=== PATIENT | male | born 1990 | race Asian ===

== ENCOUNTER 2020-06-12 12:34 | Emergency (ER) | payer OTHER ==
[2020-06-12] MEDS ORDERED: IBUPROFEN 800 MG TABLET PO STA (12:47)
[2020-06-12] MEDS ORDERED: HYDROcod/ACETAM 5/325 MG TABLET PO STA (12:47)
--- NOTE | 2020-06-12 12:49 | ED Physician Documentation ---
PD HPI BACK PAIN - Stated complaint Stated Complaint: BACK PX - Chief complaint Chief Complaint: Back Pain - History obtained from History obtained from: Patient - Additional information Additional information: Two days ago while lifting at work he developed mid back pain which is quite severe. He is never had it before. He continues to be worse with movement but is still fairly severe at rest. It is a pinpoint pain near L1. It does not radiate. No abdominal pain specifically but he says he feels like he has to keep his abdominal muscles tight. He denies fever, nausea, trouble with bowel m ovements, shortness of breath, cough. No weakness, numbness, or tingling in the lower extremities. No saddle anesthesia. No history of back issues. Review of Systems Constitutional: denies: Fever, Chills Throat: reports: Reviewed and negative Cardiac: reports: Reviewed and negative Respiratory: reports: Reviewed and negative PD PAST MEDICAL HISTORY - Past Medical History Past Medical History: No - Past Surgical History Past Surgical History: No - Present Medications Home Medications: Ambulatory Orders Medication Instructions Recorded Confirmed HYDROcod/ACETAM 5/325 [[place] 5/325] 1 - 2 tab PO Q6H PRN #7 tablet 06/12/20 Ibuprofen [Motrin] 800 mg PO Q8H PRN #20 tablet 06/12/20 - Allergies Allergies/Adverse Reactions: Allergies Allergy/AdvReac Type Severity Reaction Status Date / Time No Known Drug Allergies Allergy Verified 06/12/20 12:37 - Social History Does the pt smoke?: No Smoking Status: Never smoker Does the pt drink ETOH?: No Does the pt have substance abuse?: No - Immunizations Immunizations are current?: Yes - POLST Patient has POLST: No PD ED PE NORMAL - Vitals Vital signs reviewed: Yes - General General: Alert and oriented X 3, Other (He appears uncomfortable and winces with motion) - Cardiac Cardiac: RRR, No murmur - Respiratory Respiratory: No respiratory distress, Clear bilaterally - Abdomen Abdomen: Non tender - Back Back: Other (Mild tenderness of the upper lumbar spine, no skin changes. No flank tenderness.) - Extremities Extremities: Other (The patient has equal and normal Achilles and patellar reflexes bilaterally. Normal sensation in all areas of the legs. Patient denies saddle anesthesia. Normal strength in flexion-extension at the ankles, knees, and flexion of the hips.) - Neuro Neuro: Alert and oriented X 3, Normal speech Results - Vitals Vitals: Vital Signs - 24 hr 06/12/20 12:37 Temperature 36.5 C Heart Rate 82 Respiratory 16 Rate Blood Pressure 160/90 H O2 Saturation 99 Oxygen O2 Source Room air PD MEDICAL DECISION MAKING - ED course ED course: 29-year-old gentleman with work-related injury of the upper lumbar spine. Feeling better after meds here. Needed a work note for a few days off and given signs and symptoms to return for. Departure - Departure Disposition: 01 Home, Self Care Clinical Impression: Back injury Qualifiers: Encounter type: initial encounter Qualified Code(s): S39.92XA - Unspecified injury of lower back, initial encounter Condition: Good Record reviewed to determine appropriate education?: Yes Instructions: ED Back Care Tips, ED Low Back Pain Injury Prescriptions: Ibuprofen [Motrin] 800 mg PO Q8H PRN #20 tablet PRN Reason: PAIN &/OR FEVER HYDROcod/ACETAM 5/325 [[place] 5/325] 1 - 2 tab PO Q6H PRN #7 tablet PRN Reason: Pain Comments: Return if worse, or if not better in a few days. Apple gentle heat and gently stretch the area. Forms: Activity restrictions
--- NOTE | 2020-06-12 13:12 | XRAY Report ---
PROCEDURE: Lumbar Spine 2 View INDICATIONS: back pain/injury, upper l spine TECHNIQUE: 2 views of the lumbar spine were acquired. COMPARISON: None. FINDINGS: Bones: 5 [id number] vertebrae are present. Minimal levoconvex lumbar sclerotic curvature is see n. No significant AP alignment abnormality can be seen. No vertebral body compression fractures. No suspicious bony lesions. The disc heights are well preserved. Soft tissues: Overlying bowel gas pattern is normal. No suspicious soft tissue calcifications. IMPRESSION: Unremarkable lumbar spine plain films. Reviewed by: Siddharth Fleming MD on 06/12/2020 12:11 PM [facility] Approved by: Siddharth Fleming MD on 06/12/2020 12:11 PM [facility] Station ID: [id number]
[2020-06-12 13:23] VITALS: BP 130/74
== END 2020-06-12 13:23 | disposition home or self-care (01) ==
LOC: ED 12:34
DX: S39.92XA Unspecified injury of lower back, initial encounter (principal); X50.9XXA Other and unspecified overexertion or strenuous movements or postures, initial encounter; Y99.0 Civilian activity done for income or pay
CPT/HCPCS: 72100; 99283; 99284; A9270